=== PATIENT | female | born 1955 | race Caucasian/White ===

== ENCOUNTER 2018-01-04 16:07 | Observation (INO) | payer OTHER ==
[~2018-01-04] VITALS: Ht 177.8 cm; Wt 79.1 kg
[~2018-01-04 16:07] MED LIST: ALLEGRA-D TABLE1 TAB PO; NO HOME MEDICATIONS
[2018-01-04] MEDS ORDERED: MOBIC15 MG PO (16:15)
[2018-01-04] MEDS ORDERED: ALLEGRA-D 24HR1 T24 PO (16:15)
[2018-01-04 17:29] LABS: COLLECTION METHOD CLEAN CATCH
[2018-01-04 17:34] LABS: BASO # 0.1 (0.0-0.2); BASO % 0.5 % (0.0-2.0); EOS # 0.1 (0.0-0.7); EOS % 0.5 % (0-4.0); GRAN # 13.9 (1.4-6.5); HEMATOCRIT 47.4 % (37.0-47.0); HEMOGLOBIN 15.6 g/dl (12.5-16.0); LYMPH # 1.6 (1.2-3.4); LYMPH % 8.9 % (20.0-51.0); MEAN CELL VOLUME 93 fl (80.0-100.0); MEAN CORPUSCULAR HEMOGLOBIN 31 pg (27.0-31.0); MEAN CORPUSCULAR HGB CONC 33 g/dl (33.0-37.0); MEAN PLATELET VOLUME 10.3 fl (7.4-10.4); MONO # 2.3 (0.1-0.6); MONO % 12.5 % (1.7-9.3); PLATELET COUNT 282 K/mm3 (130-400); RED BLOOD COUNT 5.12 M/mm3 (4.10-5.30); REDCELL DISTRIBUTION WIDTH-CV 13.6 % (11.5-14.5)
[2018-01-04 17:45] LABS: MUCOUS Present /lpf; PH 5 (5-8); URINE APPEARANCE Cloudy; URINE BACTERIA None Seen /hpf; URINE BILIRUBIN Positive (NEGATIVE); URINE BLOOD Negative (NEGATIVE); URINE COLOR Amber; URINE GLUCOSE Negative (NEGATIVE); URINE KETONE 1+ (NEGATIVE); URINE LEUKOCYTE ESTERASE 3+ (NEGATIVE); URINE NITRATE Negative (NEGATIVE); URINE PROTEIN(semi-quant) 1+ (NEGATIVE); URINE UROBILINOGEN >=4.0 mg/dL (NEGATIVE)
[2018-01-04 17:49] LABS: ALBUMIN 3.8 gm/dL (3.5-5.0); BILIRUBIN,TOTAL 0.9 mg/dL (0.0-1.0); C-REACTIVE PROTEIN 6.5 mg/dL (0.0-0.9); CALCIUM 8.8 mg/dL (8.4-10.2); CREATININE, serum 0.78 mg/dL (0.52-1.25); POTASSIUM 4.2 mmol/L (3.4-5.0); TOTAL PROTEIN 6.6 gm/dL (6.4-8.2)
[2018-01-04 20:40] VITALS: BP 124/62; PULSE 81; TEMP 99
[2018-01-05 01:19] VITALS: BP 106/50; PULSE 40; TEMP 99.7
[2018-01-05 05:13] VITALS: BP 102/47; PULSE 76; TEMP 97.8
[2018-01-05 06:19] LABS: HEMATOCRIT 37.9 % (37.0-47.0); MEAN CELL VOLUME 93 fl (80.0-100.0); MEAN CORPUSCULAR HEMOGLOBIN 31 pg (27.0-31.0); MEAN CORPUSCULAR HGB CONC 33 g/dl (33.0-37.0); MEAN PLATELET VOLUME 10.4 fl (7.4-10.4); PLATELET COUNT 238 K/mm3 (130-400); RED BLOOD COUNT 4.07 M/mm3 (4.10-5.30); REDCELL DISTRIBUTION WIDTH-CV 13.8 % (11.5-14.5)
[2018-01-05 06:52] LABS: HEMOGLOBIN 12.5 g/dl (12.5-16.0)
[2018-01-05 07:46] VITALS: BP 107/51; PULSE 75; TEMP 98.3
[2018-01-05 08:05] LABS: BAND 17 % (0-10); BASOPHIL 1 % (0-2); EOSINOPHIL 1 % (0-4); LYMPHOCYTE 22 % (20.0-51.0); NEUTROPHILS 55 % (42.0-75.2); PLATELET ESTIMATE NORMAL (NORMAL)
== END 2018-01-05 12:08 | disposition home or self-care (01) ==
LOC: COL.ER 16:07 → JCC 18:57
PROVIDERS: Emergency Medicine; Surgery
DX: R10.9 Unspecified abdominal pain (principal); K59.09 Other constipation; M19.90 Unspecified osteoarthritis, unspecified site; F17.210 Nicotine dependence, cigarettes, uncomplicated; Z88.5 Allergy status to narcotic agent; Z90.710 Acquired absence of both cervix and uterus; Z85.048 Personal history of other malignant neoplasm of rectum, rectosigmoid junction, and anus
CPT/HCPCS: G0378; J0744; J2405; J3010; J7030; Q9967